=== PATIENT | female | born 1960 ===

== ENCOUNTER 2023-05-23 02:08 | Inpatient (IN) ==
[2023-05-23 02:36] LABS: ABS Eosinophils 0.1 10^3/uL (0.0-0.5); ABS Lymphocytes 2.5 10^3/uL (1.0-4.8); ABS Monocytes 0.9 10^3/uL (0.0-0.9); ABS Neutrophils 12.2 10^3/uL (1.5-7.6); ABS Nucleated RBC 0.02 10^3/ul; Eosinophil % 0.5 %; Hematocrit 34.6 % (35-45); Hemoglobin 11.7 g/dL (11.5-14.3); Lymphocyte % 15.9 %; Mean Corpuscular Hemoglobin 32.2 pg (27-33); Mean Corpuscular Hgb Conc 33.8 g/dL (31-36); Mean Corpuscular Volume 95.1 fL (80-97); Mean Platelet Volume 8.9 fL (7.5-11.2); Nucleated Red Blood Cells % 0.1 /100 WBC (0.0-0.4); Platelet Count 236 10^3/uL (150-450); Red Blood Count 3.64 10^6/uL (3.63-4.92); Red Cell Distribution Width 13.7 % (12-17); White Blood Count 15.7 10^3/uL (3.8-11.8)
[2023-05-23] MEDS ORDERED: Furosemide 20 mg/2 ml IV VIAL IV SLOW PU ONE (02:47)
[2023-05-23] MEDS ORDERED: Nitro 2% OINT (Nitroglycerin) 1 INCH/PAK TOPICAL ONE (02:48)
[2023-05-23 02:56] LABS: Albumin 4.1 g/dL (3.2-5.2); Albumin/Globulin Ratio 1.2 (1-3); Calcium 9.1 mg/dL (8.6-10.3); Creatinine, Serum 1.22 mg/dL (0.51-0.95); Globulin 3.4 g/dL (2-4); Potassium 4.2 mmol/L (3.5-5.0); Total Bilirubin 0.5 mg/dL (0.2-1.0); Total Protein 7.5 g/dL (6.4-8.9); eGFR CKD-EPI 49.9 (>60)
[2023-05-23] MEDS ORDERED: Albuterol (2.5 MG) 0.5 % CONC 0.5 ML NEB.SOLN INH ONE (03:00)
[2023-05-23] MEDS ORDERED: Ondansetron 4 mg VIAL 2 MG/ML 2 ml VIAL IV PRN (03:51)
[2023-05-23 04:06] LABS: High Sensitivity Troponin 1 Hr 76 pg/mL (<15)
[2023-05-23] MEDS ORDERED: methylPREDNISolone SOD SUCC 40 mg/ml 1 ml VIAL IV SCH (05:00)
[2023-05-23] MEDS ORDERED: Enoxaparin 40 MG/0.4 ML SYR SUBCUT SCH (06:00)
[2023-05-23] MEDS ORDERED: Albuterol/Ipratropium NEB.SOL (2.5/0.5 MG) 3 ML NEB.SOLN INH SCH ×2 (07:00)
[2023-05-23] MEDS ORDERED: Aspirin EC 81 mg TAB.EC (enteric coated) PO SCH (09:00)
[2023-05-23] MEDS ORDERED: SPIRIVA Respimat (tiotropium) 2.5 mcg/inh Inhaler INH SCH (09:00)
[2023-05-23 09:35] LABS: C Reactive Protein 2.68 mg/L (<8.01)
[2023-05-23] MEDS ORDERED: Furosemide 40 mg/4 ml IV VIAL IV SCH (10:00)
[2023-05-23] MEDS ORDERED: NS 0.9% 1000 ml BAG 1,000 ML IV SCH ×2 (10:30→14:15)
[2023-05-23 10:53] LABS: Magnesium 1.9 mg/dL (1.9-2.7)
[2023-05-23 11:03] LABS: Activated Partial Thrombo Time 29.9 seconds (26.0-38.0); INR 1.01 (0.83-1.13)
[2023-05-23 11:51] LABS: Free T3 2.8 pg/mL (2.5-3.9)
[2023-05-23 11:52] LABS: TSH Ultra Thyroid Stim Horm 2.3 mcIU/mL (0.34-5.60)
[2023-05-23 11:53] LABS: Ferritin 54.6 ng/mL (11-307)
[2023-05-23 11:58] LABS: Free T4 1.05 ng/dL (0.61-1.12)
[2023-05-23] MEDS ORDERED: Furosemide 40 mg/4 ml IV VIAL IV ONE (12:01)
[2023-05-23] MEDS ORDERED: Midazolam 10 mg/10 ml VIAL 1 mg/ml 10 ml VIAL (10 mg) IV SLOW PU ONE (12:51)
[2023-05-23] MEDS ORDERED: fentaNYL 100 mcg/2 ml 50 MCG/ML VIAL IV SLOW PU ONE (12:51)
[2023-05-23] MEDS ORDERED: Midazolam 5 mg/5 ml VIAL 1 mg/ml 5 ml VIAL (5 mg) ONE (13:33)
[2023-05-23] MEDS ORDERED: nitroGLYCERIN DRIP 25,000 MCG/250 ML BTL ONE (13:34)
[2023-05-23] MEDS ORDERED: fentaNYL 100 mcg/2 ml 50 MCG/ML VIAL ONE (13:34)
[2023-05-23] MEDS ORDERED: VERAPAMIL 2.5 MG/ML 2 ML VIAL ** 5 mg/2 ml ONE (13:34)
[2023-05-23] MEDS ORDERED: Heparin 1,000 UNIT/ML 10 ml (10,000 UNITS) CATHLAB/DIALYSIS ONE (13:34)
[2023-05-23] MEDS ORDERED: Iohexol 350 (CONTRAST) 200 ML MDV IV ONE (13:34)
[2023-05-23] MEDS ORDERED: Heparin 2 UNITS/ML 1000 mls 2,000 ML IV ONE (13:34)
[2023-05-23] MEDS ORDERED: Lidocaine 1% MPF 5 ML VIAL ONE (13:35)
[2023-05-23] MEDS ORDERED: Iohexol 350 (CONTRAST) 100 ML PAK IV ONE (13:35)
[2023-05-23] MEDS: Albuterol/Ipratropium NEB.SOL (2.5/0.5 MG) 3 ML NEB.SOLN INH SCH ×2 (13:56→18:53)
[2023-05-23] MEDS ORDERED: FERRIC CARBOXYMALTOSE 750 MG/15 ML IVPB ONE (18:22)
[2023-05-23 19:17] LABS: Creatinine, Serum 1.26 mg/dL (0.51-0.95); Potassium 5.5 mmol/L (3.5-5.0)
[2023-05-23] MEDS: Enoxaparin 40 MG/0.4 ML SYR SUBCUT SCH (20:11)
[2023-05-23] MEDS: Iron Sucrose 200 MG in NS 0.9% 100 ml BAG 100 ML IVPB SCH (20:19)
[2023-05-23] MEDS: Azithromycin 500 mg/250 ml NS 500 MG/250 ML BAG IVPB SCH (20:49)
[2023-05-23] MEDS ORDERED: cefTRIAXone 1 gm/50 mL D5W 1 GM/50 ML BAG IV SCH (21:00)
[2023-05-24] MEDS: Albuterol/Ipratropium NEB.SOL (2.5/0.5 MG) 3 ML NEB.SOLN INH SCH ×3 (01:56→13:42)
[2023-05-24 05:50] LABS: ABS Lymphocytes 2.1 10^3/uL (1.0-4.8); ABS Monocytes 0.7 10^3/uL (0.0-0.9); ABS Neutrophils 6.8 10^3/uL (1.5-7.6); ABS Nucleated RBC 0.01 10^3/ul; Eosinophil % 0.4 %; Hematocrit 32.8 % (35-45); Hemoglobin 11.2 g/dL (11.5-14.3); Mean Corpuscular Hemoglobin 32.6 pg (27-33); Mean Corpuscular Hgb Conc 34.1 g/dL (31-36); Mean Corpuscular Volume 95.6 fL (80-97); Mean Platelet Volume 9.1 fL (7.5-11.2); Nucleated Red Blood Cells % 0.1 /100 WBC (0.0-0.4); Platelet Count 202 10^3/uL (150-450); Red Blood Count 3.44 10^6/uL (3.63-4.92); Red Cell Distribution Width 13.9 % (12-17); White Blood Count 9.8 10^3/uL (3.8-11.8)
[2023-05-24 06:01] LABS: Calcium 8.7 mg/dL (8.6-10.3); Creatinine, Serum 1.04 mg/dL (0.51-0.95); eGFR CKD-EPI 60.4 (>60)
[2023-05-24] MEDS ORDERED: Furosemide 40 mg/4 ml IV VIAL IV ONE (09:28)
[2023-05-24] MEDS ORDERED: Albuterol/Ipratropium NEB.SOL (2.5/0.5 MG) 3 ML NEB.SOLN INH PRN (14:35)
[2023-05-24] MEDS: Iron Sucrose 200 MG in NS 0.9% 100 ml BAG 100 ML IVPB SCH (20:38)
[2023-05-24] MEDS: Enoxaparin 40 MG/0.4 ML SYR SUBCUT SCH (20:46)
[2023-05-24] MEDS: Azithromycin 500 mg/250 ml NS 500 MG/250 ML BAG IVPB SCH (21:09)
[2023-05-25 15:31] VITALS: BP 135/93
== END 2023-05-25 16:05 | disposition home or self-care (01) | DRG 192 ==
LOC: ED 02:08 → SUATTDRO 03:51 → EDHOLD 03:51 → MEDTELE 06:20
PROVIDERS: ADMIT Student in an Organized Health Care Education/Training Program; ATTEND Internal Medicine